=== PATIENT | female | born 1980 | race Caucasian/White ===

== ENCOUNTER 2016-05-23 22:38 | Emergency (ER) | payer OTHER ==
[2016-05-23] MEDS ORDERED: ONDANSETRON ODT 4 MG TABLET TL STA (22:49)
[2016-05-23] MEDS ORDERED: ONDANSETRON ODT 4 MG TABLET ONE (22:52)
[2016-05-23] MEDS ORDERED: DICYCLOMINE 10 MG CAPSULE PO STA (23:59)
[2016-05-24] MEDS ORDERED: ONDANSETRON ODT 4 MG Prepack 2 TL STA (00:01)
[2016-05-24] MEDS ORDERED: DICYCLOMINE 10 MG CAPSULE PO ONE (00:05)
[2016-05-24] MEDS ORDERED: ONDANSETRON ODT 4 MG Prepack 2 TL ONE (00:05)
== END 2016-05-24 00:18 | disposition home or self-care (01) ==
DX: A08.4 Viral intestinal infection, unspecified (principal)
CPT/HCPCS: 81003; 81025; 87275; 87276; 99283; A9270; Q0162

== ENCOUNTER → 2020-03-20 | Outpatient (CLI) | payer OTHER | LOC: LAB.R 08:00 | PROVIDERS: ATTEND Obstetrics & Gynecology | DX: Z36.85 Encounter for antenatal screening for Streptococcus B (principal) | CPT/HCPCS: 87797 ==

== ENCOUNTER 2020-04-16 08:53 | Outpatient (CLI) | payer OTHER ==
[2020-04-16 10:02] LABS: BASOPHILS % (AUTO) 0.4 %; EOSINOPHILS # (AUTO) 0.1 10^3/uL (0.0-0.7); EOSINOPHILS % (AUTO) 1.4 %; HGB - HEMOGLOBIN 12.2 g/dL (12.0-16.0); LYMPHOCYTES # (AUTO) 1.8 10^3/uL (1.5-3.5); LYMPHOCYTES % (AUTO) 22.2 %; MEAN CORPUSCULAR HEMOGLOBIN 30.9 pg (27.0-31.0); MEAN CORPUSCULAR HGB CONC 34.3 g/dL (32.0-36.0); MEAN CORPUSCULAR VOLUME 90.1 fL (81.0-99.0); MEAN PLATELET VOLUME 10.6 fL (7.9-10.8); MONOCYTES # (AUTO) 0.5 10^3/uL (0.0-1.0); MONOCYTES % (AUTO) 6.4 %; NEUTROPHILS # (AUTO) 5.5 10^3/uL (1.5-6.6); NEUTROPHILS % (AUTO) 68.8 %; PLT - PLATELET COUNT 166 10^3/uL (130-450); RED BLOOD COUNT 3.95 10^6/uL (4.20-5.40); RED CELL DISTRIBUTION WIDTH 13.2 % (12.0-15.0)
== END 2020-04-16 08:54 | disposition home or self-care (01) ==
LOC: LAB 08:53
PROVIDERS: ATTEND Obstetrics & Gynecology
DX: Z01.812 Encounter for preprocedural laboratory examination (principal); Z20.828 Contact with and (suspected) exposure to other viral communicable diseases; O34.211 Maternal care for low transverse scar from previous cesarean delivery
CPT/HCPCS: 36415; 85025; 86850; 86900; 86901; 86920

== ENCOUNTER 2020-04-19 06:01 | Inpatient (IN) | payer OTHER ==
[2020-04-19] MEDS ORDERED: ACETAMINOPHEN 1,000 MG/100 ML 100 ML IV ONE ×2 (06:20→07:52)
[2020-04-19] MEDS ORDERED: GABAPENTIN 400 MG CAPSULE PO SCH (06:20)
[2020-04-19] MEDS ORDERED: METHYLERGONOVINE 0.2 MG/ML VIAL IM ONE (06:23)
[2020-04-19] MEDS ORDERED: TRANEXAMIC ACID 1,000 MG in SODIUM CHLORIDE 0.9% 100ML 100 ML IV STA (06:23)
[2020-04-19] MEDS ORDERED: CARBOPROST TROMETHAMINE 250 MCG/ML AMP IM ONE ×2 (06:23→07:29)
[2020-04-19] MEDS ORDERED: OXYTOCIN/SODIUM CHLORIDE 500 ML IV PRN (06:23)
[2020-04-19] MEDS ORDERED: miSOPROStoL 200 MCG TABLET PR ONE (06:23)
[2020-04-19] MEDS ORDERED: LACTATED RINGERS 1,000 ML IV SCH ×2 (07:00→11:00)
[2020-04-19] MEDS ORDERED: BUPIVACAINE 0.25%-EPI 1:200000 PF 30 ML VIAL ONE (07:01)
[2020-04-19] MEDS ORDERED: CITRIC ACID/SODIUM CITRATE 15 ML UDC PO ONE (07:07)
--- NOTE | 2020-04-19 07:07 | ANESTHESIA ---
Pre-Anesthesia VS, & Labs - Diagnosis previous c/s - Procedure repeat c/s Vital Signs: Temp Pulse Resp BP Pulse Ox 36.7 C 81 18 123/65 98 04/19/20 06:35 04/19/20 06:35 04/19/20 06:35 04/19/20 06:35 04/19/20 06:35 Height: 5 ft 6 in Weight (kg): 93.44 kg Body Mass Index: 33.2 BMI Classification: Obese - NPO >8 hours Last Fluid Intake: am bicitra - Is Patient ?: Yes - Lab Results Lab results reviewed: Yes Home Medications and Allergies Active Medications Gabapentin (Gabapentin 400 Mg Capsule) 800 mg PO QPM RIKY Cefazolin Sodium 2 gm/ Sodium (Chloride) 100 mls @ 200 mls/hr IV Q8H RIKY Lactated Ringer's (Lr) 1,000 mls @ 125 mls/hr IV .Q8H RIKY Oxytocin/Sodium Chloride (Pitocin/Sodium Chloride) 500 mls @ 999 mls/hr IV PRN PRN; Protocol PRN Reason: POST- HEMORR PREVENTION Misoprostol (Misoprostol 200 Mcg Tablet) 800 mcg RI ONCE ONE Stop: 04/19/20 06:24 Levothyroxine [Synthroid] 125 mcg PO QDAC 05/23/16 Pnv No.95/Ferrous Fum/Folic AC [ Tablet] 1 each PO 05/23/16 Allergies/Adverse Reactions: Allergies Allergy/AdvReac Type Severity Reaction Status Date / Time No Known Drug Allergies Allergy Verified 05/23/16 22:42 Anes History & Medical History - Anesthetic History Anesthesia Complications: reports: Post-Operative Nausea/Vomiting Family history of Anesthesia Complications: Denies Family history of Malignant Hyperthermia: Denies - Medical History Cardiovascular: reports: None Pulmonary: reports: None Gastrointestinal: reports: None Urinary: reports: None Musculoskeletal: reports: None Endocrine/Autoimmune: reports: HyPOthyroidism, Other Skin: reports: None Smoking Status: Never smoker - Surgical History Gynecologic: section Exam General: Alert, Oriented x3, Cooperative Dental: WNL Mouth Openin Fingerbreadth Neck Mobility: Normal Mallampati classification: II Thyromental Distance: greater than 6 cm Respiratory: Lungs clear, Normal breath sounds, No respiratory distress Cardiovascular: Regular rate Neurological: Normal speech Cognitive Status: Within normal limits Plan Anesthesia Type: Spinal Consent for Procedure(s) Verified and Reviewed: Yes Code Status: Attempt Resuscitation ASA classification: 2-Mild systemic disease Is this case an emergency?: No
[2020-04-19] MEDS ORDERED: METHYLERGONOVINE 0.2 MG/ML VIAL ONE (07:30)
[2020-04-19 07:32] LABS: BASOPHILS % (AUTO) 0.5 %; EOSINOPHILS # (AUTO) 0.1 10^3/uL (0.0-0.7); EOSINOPHILS % (AUTO) 1.2 %; HGB - HEMOGLOBIN 11.8 g/dL (12.0-16.0); LYMPHOCYTES # (AUTO) 1.6 10^3/uL (1.5-3.5); LYMPHOCYTES % (AUTO) 20.3 %; MEAN CORPUSCULAR HGB CONC 33.8 g/dL (32.0-36.0); MEAN CORPUSCULAR VOLUME 88.8 fL (81.0-99.0); MEAN PLATELET VOLUME 10.7 fL (7.9-10.8); MONOCYTES # (AUTO) 0.5 10^3/uL (0.0-1.0); MONOCYTES % (AUTO) 5.8 %; NEUTROPHILS # (AUTO) 5.5 10^3/uL (1.5-6.6); NEUTROPHILS % (AUTO) 71.2 %; PLT - PLATELET COUNT 172 10^3/uL (130-450); RED BLOOD COUNT 3.93 10^6/uL (4.20-5.40); RED CELL DISTRIBUTION WIDTH 13.1 % (12.0-15.0); WHITE BLOOD COUNT 7.8 x10^3/uL (4.8-10.8)
--- NOTE | 2020-04-19 07:46 | HISTORY & PHYSICAL EXAMINATION ---
Admit History - Smoking Status: Never smoker - Other Maternal History Other Maternal History: The patient is a 39-year-old G3, P2 at 39 weeks 1 days estimated gestational age, presents for rLTCS The patient has been receiving her care from [facility]. She reports that she has not been seen since her 28 week visit. At that time she had oral glucose tolerance test with results of 119. TDAP complete The patient has history of two prior C-sections, the initial was for breech and the second was an elective repeat, last delivery was about 20 months ago. The patient reports that her last Pap smear was in October 2019. She has not had any abnormal Pap smears in 8 to 9 years. She has had abnormal Pap in the past that she followed the dysplasia resolved. She has never undergone a conization procedure. She denies any history of sexually transmitted infections and denies HSV.. She does not desire sterilization. Other than history of prior has been unremarkable. Allergies: No Known Allergies Medications: CLEAR FIBER POWDER ORAL POWDER (CORN DEXTRIN) ; Route: ORAL TUMS 500 MG ORAL TABLET CHEWABLE (CALCIUM CARBONATE ANTACID) ; Route: ORAL PREVIDENT 5000 BOOSTER PLUS PASTE (SODIUM FLUORIDE PSTE) PRE- FORMULA ORAL TABLET ( [id number]) Take one tablet by mouth once a day; Route: ORAL SYNTHROID 125 MCG ORAL TABLET (LEVOTHYROXINE SODIUM) ; Route: ORAL Problems: Preoperative examination (ICD-V72.84) (QFR61-K64.818) Exposure to COVID-19 coronavirus (ICD-V01.79) (TZY16-V01.828) Supervision of normal multigravida , unspecified trimester (ICD-V22.1) (NRW13-W06.80) Vaccine against disease (ICD-V05.9) (WSW01-T73) screening for streptococcus B (ICD-V28.6) (AZN76-O16.85) Abnormal Pap Smear (ICD-795.00) (EHD50-J47.619) Abnormal cervical Pap ASCUS (atypical squamous cells undetermined significance) (ICD-795.01) (QVL12-G74.610) Advanced maternal age (ICD-V26.33) (UUR49-E80.5) Uterine scar from previous surgery affecting (ICD-654.90) (ICD10- O34.29) Hypothyroidism (ICD-244.9) (AQZ86-D23.9) Endocrine, nutritional and metabolic diseases complicating , unspecified trimester (ICD-648.93) (JKY92-J25.280) Risk Factors: Smoked Tobacco Use: Never smoker Passive Smoke Exposure: no HIV High Risk Behavior: no Exercise: yes Seatbelt Use: 100 % Sun Exposure: occasionally Alcohol Use: no Drug Use: no Vital Signs: Patient Profile: 39 Years Old Female Height: 66 inches Weight: 206 pounds BMI: 33.37 BP sittin / 71 Cuff size: regular Vitals Entered By: KADE Hughes (April 10, 2020 9:29 AM) Meds Reviewed: Done Allergies Reviewed: Done No known allergies: T Past Medical History: None. Abnormal Pap Smear Headache/Migraine back pain Past Surgical History: x2/wisdom tooth extraction. (2015) (2018) [place] Teeth (2001) (2004) (2014) Bone scan bilateral feet (2014) Flowsheet View for Follow-up Visit Estimated weeks of gestation: 37 6/7 Weight: 206 Blood pressure: 105 / 71 Fundal height: 37 FHR: 144 Vaginal bleeding: no Vaginal discharge: no activity: yes Labor symptoms: no position: vertex Next visit: 1 wk Comment: Reviewed RBA for rLTCS and consents were obtained Declines BTL Reviewed COVID precautions Has help with after surgery Uses [facility] for postop meds [employer] Review of Systems ROS Comments: As per HPI, otherwise remaining systems are negative. Physical Constitutional: GEN: NAD HEAD: NCAT EYES: No scleral icterus or conjunctival injection NECK: No cervical LAD or TM CV: RRR RESP: CTAB, normal effort ABD: S&NT/ND PSYCH: appropriate affect NEURO: alert and oriented, normal gait and coordination EXT: WWP Impression & Recommendations: Problem # 1: Supervision of normal multigravida , unspecified trimester (ICD-V22.1) (RBZ99-U21.80) DATING: LMP 08/16/2019 gives VALE 04/25/2020 US on 10/26/2019 at 14w6d gives VALE 04/18/2020; cwd A pos/Rub imm QUAD wnl FAS 29%ile , posterior, wnl; gender not known per pt request HCT 36.6 on 01/28/20 Glucola 119 TDAP complete Influenza complete HSV: denies GBS: neg MOD: rLTCS scheduled for 04/18/2020 Declines BTL Vertex by bedside us RTC in one week Last pap 09/07/18, wnl FU in 1 week post op Orders: [id number] - SUBSEQUENT VISIT ([id number]) Reviewed risks/benefits/alternatives to Risks include, but are not limited to, bleeding, infection, damage to neatby tissue and organs. On average, EBL of up to 1 liter is considered within normal limits for CS. Risks of blood transfusion include infection Risk of HIV 1/2million nationwide Risk of Hepatitis 1/1 million Risks of transfusion reaction Infection risk moderate given clean/contaminated nature of procedure and IV antibiotics will be given. Damage to nearby tissue and organs including bladder, bowel, ureters, blood vessels, nerves, and fetus Damage may be noted intra-op and may be delayed until after the procedure is complete Reviewed management of complications and efforts to avoid such outcomes but reviewed that they may occur despite our best efforts Confirmed that sterlization is NOT desired Written informed consent obtained. Meds/Allgy - Home Medications Home Medications: Ambulatory Orders Medication Instructions Recorded Confirmed Levothyroxine [Synthroid] 125 mcg PO QDAC 05/23/16 05/23/16 Pnv No.95/Ferrous Fum/Folic AC 1 each PO 05/23/16 05/23/16 [ Tablet] Dicyclomine [Bentyl] 10 mg PO TID #15 capsule 05/24/16 Ondansetron Odt [Zofran] 4 mg TL Q6H PRN #14 tablet 05/24/16 - Allergies Allergies/Adverse Reactions: Allergies Allergy/AdvReac Type Severity Reaction Status Date / Time No Known Drug Allergies Allergy Verified 05/23/16 22:42 Physical - Abdominal Exam Vital Signs: Temp Pulse Resp BP Pulse Ox 98.1 F 81 18 123/65 98 04/19/20 06:35 04/19/20 06:35 04/19/20 06:35 04/19/20 06:35 04/19/20 06:35
[2020-04-19] MEDS ORDERED: HYDROmorphone 1 MG/ML CARPUJECT IVP ONE (07:52)
[2020-04-19] MEDS ORDERED: KETOROLAC 30 MG/ML VIAL IVP ONE (07:52)
[2020-04-19] MEDS ORDERED: OXYTOCIN IV ONE (07:52)
[2020-04-19] MEDS ORDERED: DEXAMETHASONE 4 MG/ML VIAL IVP ONE (07:52)
[2020-04-19] MEDS ORDERED: SODIUM CHLORIDE 0.9% IV ONE (07:52)
[2020-04-19] MEDS ORDERED: TRANEXAMIC ACID 1,000 MG/10 ML VIAL IV ONE (07:52)
[2020-04-19] MEDS ORDERED: fentaNYL 100 MCG/2 ML VIAL IVP ONE (07:52)
[2020-04-19] MEDS ORDERED: ONDANSETRON 4 MG/2 ML VIAL IVP ONE (07:52)
[2020-04-19] MEDS ORDERED: ePHEDrine 50 MG/ML VIAL IVP ONE (07:52)
[2020-04-19] MEDS ORDERED: BUPIVACAINE 0.25%-EPI 1:200000 PF 30 ML VIAL SUBQ ONE ×2 (08:12→09:46)
[2020-04-19] MEDS ORDERED: ONDANSETRON 4 MG/2 ML VIAL ONE (08:52)
[2020-04-19] MEDS ORDERED: fentaNYL 100 MCG/2 ML VIAL ONE (08:53)
[2020-04-19] MEDS: ONDANSETRON 4 MG/2 ML VIAL IVP PRN ×2 (10:00→16:31)
[2020-04-19] MEDS ORDERED: ONDANSETRON ODT 4 MG TABLET TL PRN (10:13)
[2020-04-19] MEDS ORDERED: oxyCODONE 5 MG TABLET PO PRN (10:13)
[2020-04-19] MEDS ORDERED: LACTATED RINGERS 1,000 ML IV ONE ×2 (10:13→10:44)
--- NOTE | 2020-04-19 10:23 | OPERATIVE REPORT ---
Operative Report - General Admit Date: 04/19/20 Procedure Date: 04/19/20 Planned Procedure: repeat low transverse Pre-Op Diagnosis: IUP at 39+1, Hx of prior x2 Procedure Performed: Repeat low transverse Post Op Diagnosis: same and delivery of term gestation - Procedure Note Primary Surgeon: Paulette Hedrick MD Secondary Surgeon: TAWANNA Longoria CNM Anesthesia Provider: Joselin Wilson CRNA Anesthesia Technique: Spinal Pathology: Placenta for routine discard IV Fluids (mL): 1,400 (see anesthesia record) Estimated Blood Loss (mL): 450 Urine Output (mL): 400 Indications: The patient is a 39-year-old G3, P2 at 39 weeks 1 days estimated gestational age, presents for rLTCS The patient has history of two prior C-sections, the initial was for breech and the second was an elective repeat, last delivery was about 20 months ago. Here for repeat . Declines sterilization. Findings: Normal appearing uterus, tubes, and ovaries. Vigrous male infant delivered from vertex pressentation. Weight and Apgars pending. Complications: None - Other Other Information/Narrative: Risks benefits and alternatives of the procedure were discussed. Written informed consent was obtained. Patient was taken to the operating room where spinal anesthesia was placed and found to be adequate. She was prepped and draped in the usual sterile fashion in the dorsal supine position with a leftward tilt. English catheter was in place. SCDs were in place and activated. Cefazolin 2 g IV was given as a preoperative antibiotic. Preoperative timeout was performed. A Pfannenstiel incision was made in the skin with a scalpel and carried through the underlying layer of fascia in a combination of sharp and blunt dissection. The fascia was incised in the midline, and the incision was extended laterally with the Mederos scissors. The superior aspect of the fascial incision was grasped with the Sherin clamps, elevated, and the underlying rectus muscles were dissected off bluntly and sharply using the Mederos scissors. Attention was then turned to the inferior aspect of the incision which in a similar fashion was grasped, tented up with Sherin clamps, and the underlying rectus muscles dissected off bluntly and sharply using Mederos scissors. The rectus muscles were then in the midline. The peritoneum was identified, tented up, and entered bluntly. The peritoneal incision was extended superiorly and inferiorly with good visualization of the bladder. The bladder that blade was then inserted. A bladder flap was not created. The lower uterine segment of the uterus was identified, and incised in a transverse fashion with a scalpel. The uterus was entered bluntly. The uterine incision was extended in a craniocaudal fashion by manual stretch. The bladder blade was removed. The was delivered from from vertex position. Baby was wrapped in a warm sterile towel. Delayed cord clamping was performed. After cessation of pulsations, the cord was clamped x2 and cut. The infant was handed off to the waiting pediatricians. The placenta was removed with manual expression. The uterus was not exteriorized and cleared of all clots clots and debris via manual swipe using Ray-Nic x2. The uterine incision was then repaired in a running locked fashion using 0 Vicryl suture. The incisoin was reinforced with a running imbricating layer again using 0-Vicryl suture. Excellent hemostasis was obtained. The gutters were cleared of all clots and debris. The pelvis was irrigated sloppy wet laparotomy spponges. The uterine defect was well visualized in normal anatomic position it was noted again to be hemostatic. The peritoneum was then reapproximated with 2-0 Vicryl in a running fashion. The rectus muscles were then reapproximated using interrupted [id number] sutures using 2-0 Chromic. Good hemostasis was noted. The fascia was then closed using 0 Vicryl in a running fashion starting from the left lateral edge to the midline. A second suture was used to close the fascia in a running fashion starting from the right lateral edge and meeting in the midline, agian using 0-Vicryl. The subcutaneous tissue was then irrigated and closed using 0 chromic in a running subcutaneous suture. Skin was closed in a running subcuticular suture using 4-0 Monocryl. A total of 20 cc of 1% lidocaine with epinephrine was injected into the suture line. Steri-Strips were applied to reinforce the incision and dressing was applied. Procedure was well-tolerated and without complication. Sponge lap and needle counts were correct x2. Patient was taken to recovery room in stable condition. TAWANNA Wayne CNM, assisted with retraction, delivery of the infant, and suturing.
[2020-04-19] MEDS: PROMETHAZINE 25 MG/1 ML VIAL IV SCH ×2 (10:28→11:40)
[2020-04-19] MEDS: ceFAZolin 2 GM in SODIUM CHLORIDE 0.9% MINIBAG 100 ML IV SCH ×2 (11:25→17:16)
[2020-04-19] MEDS: ACETAMINOPHEN 500 MG TABLET PO SCH ×2 (11:40→16:31)
[2020-04-19] MEDS: KETOROLAC 30 MG/ML VIAL IVP SCH ×2 (17:15→23:26)
[2020-04-19] MEDS: SODIUM CHLORIDE FLUSH 0.9% 10 ML SYRINGE IVP PRN ×2 (17:15→23:27)
[2020-04-19] MEDS: SODIUM CHLORIDE FLUSH 0.9% 10 ML SYRINGE IVP SCH ×2 (17:15→23:27)
--- NOTE | 2020-04-19 17:40 | ANESTHESIA POST OP EVALUATION ---
Anesthesia Post Eval - Post Anesthesia Eval Vitals: Last Vital Signs Temp 36.4 C L 04/19/20 16:30 Pulse 73 04/19/20 16:30 Resp 17 04/19/20 16:30 BP 115/59 L 04/19/20 16:30 Pulse Ox 97 04/19/20 16:30 CV Function Including HR & BP: positive: Stable Pain Control: positive: Satisfactory Nausea & Vomiting: positive: Negative Mental Status: positive: Baseline Respiratory Status: Airway Patent Hydration Status: Satisfactory Anesthesia Complications: positive: None
[2020-04-19] MEDS: DOCUSATE SODIUM 100 MG CAPSULE PO SCH (23:26)
[2020-04-20] MEDS: ACETAMINOPHEN 500 MG TABLET PO SCH ×3 (00:35→17:11)
[2020-04-20] MEDS: SODIUM CHLORIDE FLUSH 0.9% 10 ML SYRINGE IVP PRN (05:10)
[2020-04-20] MEDS: KETOROLAC 30 MG/ML VIAL IVP SCH (05:10)
[2020-04-20 06:02] LABS: BASOPHILS % (AUTO) 0.3 %; EOSINOPHILS # (AUTO) 0.1 10^3/uL (0.0-0.7); LYMPHOCYTES # (AUTO) 2.4 10^3/uL (1.5-3.5); LYMPHOCYTES % (AUTO) 24.2 %; MEAN CORPUSCULAR HEMOGLOBIN 30.4 pg (27.0-31.0); MEAN CORPUSCULAR HGB CONC 32.6 g/dL (32.0-36.0); MEAN CORPUSCULAR VOLUME 93.2 fL (81.0-99.0); MEAN PLATELET VOLUME 10.6 fL (7.9-10.8); MONOCYTES # (AUTO) 0.7 10^3/uL (0.0-1.0); MONOCYTES % (AUTO) 7.2 %; NEUTROPHILS # (AUTO) 6.6 10^3/uL (1.5-6.6); NEUTROPHILS % (AUTO) 66.7 %; PLT - PLATELET COUNT 188 10^3/uL (130-450); RED BLOOD COUNT 3.95 10^6/uL (4.20-5.40); RED CELL DISTRIBUTION WIDTH 13.2 % (12.0-15.0); WHITE BLOOD COUNT 9.9 x10^3/uL (4.8-10.8)
[2020-04-20] MEDS ORDERED: LEVOTHYROXINE 125 MCG TABLET PO SCH (07:00)
[2020-04-20] MEDS ORDERED: IBUPROFEN 600 MG TABLET PO SCH (11:00)
[2020-04-20] MEDS: DOCUSATE SODIUM 100 MG CAPSULE PO SCH ×2 (11:30→21:11)
--- NOTE | 2020-04-20 12:36 | PROVIDER PROGRESS NOTE ---
Subjective - Prog Note Date Prog Note Date: 04/20/20 Prog Note Time: 09:00 - Subjective Subjective: Patient is up and ambulating, tolerating po, and voiding. Pain is well managed with pain medications. BF going well. Objective - Vital Signs/Intake & Output Reviewed Vital Signs: Yes Vital Signs: Vital Signs x48h Temp Pulse Resp BP BP Pulse Ox 04/20/20 12:08 97.5 F L 65 18 99/60 97 04/20/20 08:00 97.5 F L 67 17 106/55 L 98 04/20/20 05:13 97.9 F 62 16 104/52 L 98 Intake & Output: Intake & Output 04/17/20 04/18/20 04/19/20 04/20/20 23:59 23:59 23:59 23:59 Intake Total 1760 500 Output Total 2105 1500 Balance -345 -1000 - Objective General Appearance: positive: No acute distress Neck: positive: Nml inspection Respiratory: positive: No respiratory distress Cardiovascular: positive: Other (RR) Peripheral Pulses: 2+ Radial (R), 2+ Dorsalis pedis (R), 2+ Dorsalis pedis (L) Abdomen: positive: Non-tender, Other (S&NT/ND. Incision with dressing in place CDI) Skin: positive: Color nml Extremities: positive: Non-tender, No pedal edema Neurologic/Psychiatric: positive: Oriented x3 - Lab Results Fish Bones: 04/20/20 05:31 Other Labs: Lab Results x24hrs 04/20/20 Range/Units 05:31 WBC 9.9 (4.8-10.8) x10^3/uL RBC 3.95 L (4.20-5.40) 10^6/uL Hgb 12.0 (12.0-16.0) g/dL Hct 36.8 L (37.0-47.0) % MCV 93.2 (81.0-99.0) fL MCH 30.4 (27.0-31.0) pg MCHC 32.6 (32.0-36.0) g/dL RDW 13.2 (12.0-15.0) % Plt Count 188 (130-450) 10^3/uL MPV 10.6 (7.9-10.8) fL Neut # (Auto) 6.6 (1.5-6.6) 10^3/uL Lymph # (Auto) 2.4 (1.5-3.5) 10^3/uL [place] # (Auto) 0.7 (0.0-1.0) 10^3/uL Eos # (Auto) 0.1 (0.0-0.7) 10^3/uL Baso # (Auto) 0.0 (0.0-0.1) 10^3/uL Absolute Nucleated RBC 0.00 x10^3/uL Nucleated RBC % 0.0 /100WBC Assessment/Plan - Problem List (1) delivery delivered Impression: POD#1: Patient is doing well Routine post op care Anticipate DC home in am
[2020-04-20] MEDS: IBUPROFEN 600 MG TABLET PO SCH ×2 (14:51→21:12)
[2020-04-21] MEDS: IBUPROFEN 600 MG TABLET PO SCH (04:00)
[2020-04-21] MEDS: ACETAMINOPHEN 500 MG TABLET PO SCH ×2 (04:00→12:39)
[2020-04-21 08:42] VITALS: BP 110/69
--- NOTE | 2020-04-21 09:24 | Discharge Plan ---
Discharge Plan Problem Reviewed?: Yes Disposition: Home, Self Care Prescriptions: Docusate Sodium 100Mg Capsule [Colace 100Mg Capsule] 100 - 200 mg PO BID PRN #60 capsule PRN Reason: Constipation Ibuprofen [Motrin] 600 mg PO Q6H PRN #90 tab PRN Reason: Pain oxyCODONE [Roxicodone] 5 mg PO Q4H PRN #24 tablet PRN Reason: Pain Acetaminophen [Tylenol] 650 mg PO Q6H PRN #90 tablet PRN Reason: PRN PAIN &/OR FEVER Diet: Regular Activity Restrictions: Additional Comments Shower Restrictions: Yes (OK to shower. No tub baths or hot tubs for 4 weeks) Additional Instructions or Follow Up instructions: Nothing in the vagina for 6 weeks: No intercourse, tampons, douching Call for: -Fever greater than 100.5 -Pain that does not improve with pain medication -Heavy bleeding in which you are soaking a pad an hour for 2 hours in a row -Incision becomes hot, hard, red, starts to open, or leaks foul smelling fluid No lifting more than 10# for 4 [address] while on narcotics Ok to shower. Let water run over the incision. Do not soap, scrub, or apply lotion. Pat dry with a clean towel or rosi a psychology department chair. The surgical stickers will start to peel off and you can remove them when they do. Otherwise, the provider will remove them at your one week follow-up appointment. OK to use an unscented sanitary napkin or clean washcloth to keep the incision dry if the belly folds over the incision. No Smoking: If you smoke, Please STOP! Call for help. Follow-up with: Sinai Hedrick MD [Provider Admit Priv/Credential] -
--- NOTE | 2020-04-21 10:16 | PROVIDER PROGRESS NOTE ---
Subjective - Prog Note Date Prog Note Date: 04/21/20 Prog Note Time: 10:13 - Subjective Subjective: Patient is doing well. Has been up and ambulating. Tolerating po. Pain well managed. Voiding. BF going well. Objective - Vital Signs/Intake & Output Reviewed Vital Signs: Yes Vital Signs: Vital Signs x48h Temp Pulse Pulse Resp BP BP Pulse Ox 04/21/20 08:39 97.9 F 65 18 110/69 97 04/21/20 04:13 97.5 F L 55 L 16 111/60 97 Intake & Output: Intake & Output 04/18/20 04/19/20 04/20/20 04/21/20 23:59 23:59 23:59 23:59 Intake Total 1760 500 Output Total 2105 1500 Balance -345 -1000 - Objective General Appearance: positive: No acute distress Neck: positive: Nml inspection Respiratory: positive: No respiratory distress, Breath sounds nml Cardiovascular: positive: Regular rate & rhythm Abdomen: positive: Non-tender, Other (Dressing CDI. Removed and CDI) Back: positive: Nml inspection Skin: positive: Color nml, No rash, Warm Extremities: positive: Non-tender, No pedal edema Neurologic/Psychiatric: positive: Oriented x3 - Lab Results Fish Bones: 04/20/20 05:31 Assessment/Plan - Problem List (1) delivery delivered Impression: POD#2: Doing well. Meeting goals for discharge Routine discharge instructions given FU in 1 weeks
--- NOTE | 2020-04-21 10:19 | DISCHARGE SUMMARY ---
"Discharge Summary Admit Date: 04/19/20 Discharge Date: 04/21/20 Discharging Provider: Ryley Code Status: Attempt Resuscitation Condition at Discharge: Good Discharge Disposition: 01 Home, Self Care - DIAGNOSES Admission Diagnoses: IUP at 39+1 wga Hx of prior x2 Discharge Diagnoses with Status of Each Condition: Same and delivery of term gestation - HPI History of Present Illness: The patient is a 39-year-old G3, P2 admitted at 39 weeks 1 days estimated gestational age, presents for rLTCS The patient has been receiving her care from . She reports that she has not been seen since her 28 week visit. At that time she had oral glucose tolerance test with results of 119. TDAP complete The patient has history of two prior C-sections, the initial was for breech and the second was an elective repeat, last delivery was about 20 months ago. The patient reports that her last Pap smear was in October 2019. She has not had any abnormal Pap smears in 8 to 9 years. She has had abnormal Pap in the past that she followed the dysplasia resolved. She has never undergone a conization procedure. She denies any history of sexually transmitted infections and denies HSV.. She does not desire sterilization. Other than history of prior has been unremarkable. - CONSULTS | PROCEDURES Procedures: Repeat low transverse . - HOSPITAL COURSE Hospital Course: The patient is a 39-year-old G3, P2 at 39 weeks 1 days estimated gestational age admitted for repeat LTCS. Procedure was well tolerated and without complication. She delivered a viable male infant from vertex presentation. Apgars were 8/9 and weight 3.675 kg. Postoperative/ course was unremarkable. Meeting goals for discharge by POD#2. Rh positive/Rubella immune. Routine discharge instructions given. - ALLERGIES Allergies/Adverse Reactions: Allergies Allergy/AdvReac Type Severity Reaction Status Date / Time No Known Drug Allergies Allergy Verified 05/23/16 22:42 - MEDICATIONS Home Medications: Ambulatory Orders Medication Instructions Recorded Confirmed Levothyroxine [Synthroid] 125 mcg PO QDAC 05/23/16 05/23/16 Pnv No.95/Ferrous Fum/Folic AC 1 each PO 05/23/16 05/23/16 [ Tablet] Dicyclomine [Bentyl] 10 mg PO TID #15 capsule 05/24/16 Ondansetron Odt [Zofran] 4 mg TL Q6H PRN #14 tablet 05/24/16 Acetaminophen [Tylenol] 650 mg PO Q6H PRN #90 tablet 04/19/20 Docusate Sodium 100Mg Capsule 100 - 200 mg PO BID PRN #60 capsule 04/19/20 [Colace 100Mg Capsule] Ibuprofen [Motrin] 600 mg PO Q6H PRN #90 tab 04/19/20 oxyCODONE [Roxicodone] 5 mg PO Q4H PRN #24 tablet 04/19/20 - LABS Result Diagrams: 04/20/20 05:31 - QUALITY (Female Hip Fx Only) Was patient sent home on osteoporosis medication?: No - FOLLOW UP Follow Up: [address] Hedrick - TIME SPENT Time Spent in Discharge (Minutes): 30"
[2020-04-21] MEDS: DOCUSATE SODIUM 100 MG CAPSULE PO SCH (12:39)
--- NOTE | 2020-04-21 13:33 | Labor Flowsheet ---
Labor Flowsheet Datetime Report Generated by CPN: 04/21/2020 13:32 Datetime: 04/19/2020 09:25 VITAL SIGNS NBP Sys/Karma/Mean (mmHg): 127 : 88 : 97 Pulse: 103 COMMUNICATION LaborFlag: Antepartum Datetime: 04/19/2020 07:44 SpO2 (%): 96 Datetime: 04/19/2020 06:28 Stage of : Antepartum
== END 2020-04-21 13:20 | disposition home or self-care (01) | DRG 788 ==
LOC: INTOOBSV 06:01 → UNDOADMOB 06:01 → FBP 06:01 → OBS 09:06 → OBSVTOIN 10:13 → INTOOBSV 10:13 → UNDODISIN 04-21 13:20
PROVIDERS: ADMIT Obstetrics & Gynecology; ATTEND Obstetrics & Gynecology
PROC: 10D00Z1 Extraction of Products of Conception, Low, Open Approach (ICD-10-PCS; principal; 2020-04-19 07:30)
DX: O34.211 Maternal care for low transverse scar from previous cesarean delivery (principal); Z37.0 Single live birth; O99.284 Endocrine, nutritional and metabolic diseases complicating childbirth; E03.9 Hypothyroidism, unspecified; Z3A.39 39 weeks gestation of pregnancy
CPT/HCPCS: 36415; 85025; A9270; J0131; J1170; J7120; 86850; 86900; 86901; 86920

== ENCOUNTER 2020-04-27 13:11 | Outpatient (CLI) | payer OTHER | END 2020-04-27 13:12 | disposition home or self-care (01) | LOC: WFO 13:11 | PROVIDERS: ATTEND Pediatrics | DX: Z53.9 Procedure and treatment not carried out, unspecified reason (principal) ==

== ENCOUNTER 2021-03-28 07:14 | Outpatient (CLI) | payer OTHER ==
--- NOTE | 2021-03-28 09:24 | MRI Report ---
PROCEDURE: Ankle LT W/O INDICATIONS: L FOOT AND ANKLE PAIN TECHNIQUE: Noncontrast Magnetic Resonance Imaging (MRI) of the ankle/hindfoot was performed utilizing the follow ing sequences: sagittal T1 spin echo, sagittal STIR or T2 weighted, axial PD fast spin echo, axial T2 fast spin echo with fat saturation, coronal T2 spin echo with fat saturation, and PD fast spin echo with fat saturation. COMPARISON: None. FINDINGS: Bones: No acute fracture. No suspicious osseous lesion. There is minimal marrow edema present within the lateral malleolus. Joint effusions: None. Talar dome: No osteochondral lesion. Coalitions: No hindfoot coalition identified. There is diffuse hindfoot and midfoot degenerative spurring and subchondral sclerosis Medial structures: Deltoid ligament: Intact. Spring ligament: Intact. Posterior tibialis: Minimal tenosynovitis was intact Flexor digitorum longus: Intact. Flexor hallucis longus: Intact. Posterior tibial neurovascular bundle: Normal appearance. Lateral structures: Anterior talofibular ligament: Intact. Calcaneofibular ligament: Intact. Posterior talofibular ligament: Intact. Anterior tibiofibular ligament: Intact. Posterior tibiofibular ligament: Intact. Peroneus longus: Intact. Peroneus brevis: Mild tendinopathy and interstitial tearing at the level of the lateral malleolar tip . Sinus tarsi: Normal appearance. Anterior structures: Dorsal talonavicular ligament: Intact. Tibialis anterior: Intact. Extensor hallucis longus: Intact. Extensor digitorum longus: Intact. Posterior and plantar structures: Achilles tendon: Intact. Plantar fascia: Intact. Muscles: No atrophy to suggest Smith's neuropathy. IMPRESSION: No bone marrow edema involving the lateral malleolus which could be related to mild contusion. Minimal posterior tibialis tenosynovitis Peroneus brevis tendinopathy and mild interstitial tearing as above. Reviewed by: Patrick Santamaria MD on 03/28/2021 9:22 AM PST Approved by: Patrick Santamaria MD on 03/28/2021 9:22 AM PST Station ID: [id number]
--- NOTE | 2021-03-28 09:30 | MRI Report ---
PROCEDURE: Foot LT W/O INDICATIONS: L FOOT AND ANKLE PAIN TECHNIQUE: Noncontrast coronal and sagittal T1 spin echo and STIR; axial T1 spin echo and T2 fast spin echo with fat saturation through the left foot. COMPARISON: None. FINDINGS: Image quality: Excellent. Bones: The visualized bone marrow demonstrates normal signal on all sequences. The overlying cortex appears intact. No fractures lines or intra-osseous lesions. Scattered subchondral sclerosis and s purring. Soft tissues: The scanned muscles demonstrate normal overall bulk and internal signal. Subcutaneous tissues appear normal as well. There is mild amount of fluid between the first and second, second an d third, and third and fourth metatarsal heads in keeping with intermetatarsal bursitis. No discrete soft tissue signal abnormality in the area of the skin fiducial placed on the dorsal forefoot at the level of the fifth metatarsal base. There is minimal marrow signal change in the fifth metatarsal bas e which is technically indeterminate and of doubtful clinical significance. Sequela of low-grade reso lving marrow contusion is in the differential. If there is history of trauma in this area. There is infiltration of the plantar subcutaneous fat at the level of the fifth metatarsal head. No soft tissue masses are present. IMPRESSION: Diffuse intermetatarsal fluid as detailed above suggesting low-grade intermetatarsal bur sitis. Nonspecific soft tissue swelling and signal changes at the lateral forefoot, at the fifth metatarsal head, plantar aspect. This could represent low-grade cellulitis versus developing adventitial bursiti s. Please correlate clinically to exam findings. Reviewed by: Patrick Santamaria MD on 03/28/2021 9:29 AM PST Approved by: Patrick Santamaria MD on 03/28/2021 9:29 AM PST Station ID: [id number]
== END 2021-03-28 07:15 | disposition home or self-care (01) ==
LOC: DI 07:14
PROVIDERS: ATTEND Podiatrist
DX: M65.872 Other synovitis and tenosynovitis, left ankle and foot (principal); R22.42 Localized swelling, mass and lump, left lower limb

== ENCOUNTER 2021-05-22 08:15 | Outpatient (CLI) | payer OTHER ==
--- NOTE | 2021-05-22 10:17 | MRI Report ---
PROCEDURE: Foot RT W/O INDICATIONS: PAINFUL RIGHT FOOT AND ANKLE TECHNIQUE: Noncontrast coronal and sagittal T1 spin echo and STIR; axial T1 spin echo and T2 fast spin echo with fat saturation through the right foot. COMPARISON: None. FINDINGS: Image quality: Excellent. Bones: Surface skin marker is placed over dorsal and lateral aspect of the midfoot at the level of f ifth metatarsal base/proximal shaft. A second surface skin marker is also seen placed over plantar an d medial aspect of mid foot at the level of first metatarsal base/proximal shaft. There is no marrow edema. No metatarsal stress fractures. Mild osteoarthritic changes are seen at first MTP joint and ar ticulation between first metatarsal head and sesamoids. No suspicious intraosseous lesion. No other a hilda of abnormal marrow signal. Soft tissues: The scanned muscles demonstrate normal overall bulk and internal signal. Subcutaneous tissues appear normal as well. No soft tissue masses are present. IMPRESSION: 1. 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 No metatarsal stress fracture. No other area of abnormal marrow signal. No suspicious intraosseous lesion. 2. Visualized midfoot and forefoot tendons and ligaments are grossly intact. No gross soft tissue abn ormality is seen. No abnormality is seen at patient's reported areas of pain. Reviewed by: Edgar Cervantes MD on 05/22/2021 10:16 AM PST Approved by: Edgar Cervantes MD on 05/22/2021 10:16 AM PST Station ID: [id number]
--- NOTE | 2021-05-22 12:56 | MRI Report ---
PROCEDURE: Ankle RT W/O INDICATIONS: PAINFUL RIGHT FOOT AND ANKLE TECHNIQUE: Noncontrast sagittal T1 spin echo and T2 fast spin echo with fat saturation, axial proton density fas t spin echo and T2 fast spin echo with fat saturation, coronal T1 spin echo and T2 fast spin echo wit h fat saturation through the ankle/hindfoot. COMPARISON: None. FINDINGS: Image quality: Excellent. Bones and joints: Questionable marrow edema involving the cuneiforms, cuboid, and adjacent metatarsal bases not appreciated on MRI of the foot from the same day likely represent artifacts. No discrete f racture line. No suspicious intraosseous lesion. No hindfoot coalitions. No osteochondral injuries o f the talar dome. No pathologic joint effusions. Medial structures: The posterior tibialis is mildly thickened with surrounding soft tissue edema at the level of distal talus/talonavicular joint. The flexor digitorum longus, and flexor hallucis longu s tendons are intact. The posterior tibial neurovascular bundle appears normal within the tarsal leia brian, without extrinsic mass effect. The deep layer (anterior and posterior tibiotalar ligaments) and superficial layer (tibionavicular, tibiospring, and tibiocalcaneal ligaments) of the deltoid ligamen t appear normal. The spring ligament components (superomedial calcaneonavicular, medioplantar obliqu e calcaneonavicular, and inferoplantar longitudinal ligaments) are intact. Lateral structures: The anterior talofibular, and calcaneofibular ligaments are intact. Thickened po sterior talofibular ligament with intrasubstance T2 hyperintense signal is seen suggestive of low-gra de sprain/intrasubstance partial thickness tear. More superiorly, the anterior and posterior tibiofib ular ligaments appear normal, as is the intermalleolar ligament. The tibiofibular syndesmosis is nor mal in width at 2 mm or less. The peroneus longus and brevis tendons demonstrate normal location and morphology. Adjacent bony peroneal tubercle and retrotrochlear prominence are normal in size. The sinus tarsi demonstrates normal fatty signal, without edema, fibrosis, or cyst formation. Visualized sinus tarsi components (cervical ligament, interosseous talocalcaneal ligament, roots of the inferio r extensor retinaculum) appear normal. Anterior structures: The tibialis anterior, extensor hallucis longus, and extensor digitorum longus tendons appear intact. Posterior and plantar structures: Achilles tendon is intact. Medial and lateral bands of the planta r fascia are of normal thickness. No abductor digiti quinti muscle atrophy to suggest Smith neuropa thy. IMPRESSION: 1. Suggestion of mild tendinosis involving posterior tibialis tendon at the level of distal talus/lela onavicular joint. Rest of the ankle tendons are intact. 2. Suggestion of sprain/low-grade intrasubstance partial thickness tear involving posterior talofibul ar ligament. 3. No definite marrow edema. No osteochondral injury of talar dome. No fracture or dislocation. Reviewed by: Edgar Cervantes MD on 05/22/2021 12:11 PM PST Approved by: Edgar Cervantes MD on 05/22/2021 12:11 PM PST Station ID: [id number]
== END 2021-05-22 08:16 | disposition home or self-care (01) ==
LOC: DI 08:15
PROVIDERS: ATTEND Podiatrist
DX: M67.971 Unspecified disorder of synovium and tendon, right ankle and foot (principal); M19.071 Primary osteoarthritis, right ankle and foot

== ENCOUNTER 2021-08-29 13:10 | Outpatient (CLI) | payer OTHER ==
[2021-08-29 14:16] VITALS: BP 135/89
--- NOTE | 2021-08-29 14:16 | SLEEP CARE CONSULTATION ---
Information from patient questionnaire entered by Piedad Baez MA. I have reviewed and concur with the information entered by Piedad Baez MA. This document represents the service I personally performed and the decisions made by me, Pooja Bill ARNP. History of Present Illness Service Date and Time: 08/29/2021 1310 Reason for Visit: New patient (ONSET 05/2003, NO PRIORS,) Chief Complaint: reports: Unrefreshed sleep, Snoring, Fatigue, Other (jaw clench ine and grinding while sleeping) Date of Onset: 2013 Usual bedtime: 900-930 PM Time it takes to fall asleep: 15-30 MINUTES Snores at night: Yes Observed to quit breathing while asleep: No Sleeps alone due to snoring: No Number of times waking at night: 3 Reasons for waking at night: reports: Snoring, Other (unknown reasons). denies: Choking, Gasping for air Toss, Turn, or Twitch while sleeping: Yes Recalls having dreams: No Usually gets out of bed at: 0600 Feels refreshed in the morning: No Morning headache: Yes (6 days week and will last all day; "never go away") Sleepy or fatigued during the day: Yes (will get sleepy when being still) Ever fallen asleep while driving: Yes (drowsy driving, no accidents) Takes day naps: No Dreams during day naps: No Prior sleep studies: No Additional HPI information: I had the pleasure of seeing SORIN REDMOND today regarding the possibility of her having a sleep disorder. Her current complaints are snoring and fatigue. Patient states she does some jaw clenching and grinding while sleeping. She was recommended by dentist to be evaluated for sleep apnea. She states she has been fatigued forever. She does not wake up feeling rested. She snores but her states it isn't too loud. She states the snoring will wake her up. Her has not observed any pauses in breathing. She has broken many oral devices made for her jaw clenching. She states if she goes without using her mouth guard then she can hardly open her mouth in the morning. She will wake up with a headache about 6 days a week and they never go away. They think her headaches are related to her jaw clenching. She has issues with TMJ as well. - Parasomnia Symptoms Ever been unable to move upon waking from sleep: No Walks in sleep: Yes (used to as a kid) Talks in sleep: Yes Ever acted out dreams in sleep: No Ever felt weak in the knees when startled or emotional: Yes (has not fallen to ground) Bothered by creepy, crawly, restless sensations in legs: No Problems with memory or concentration: Yes (concentration mostly) Subjective Initial [place] Sleepiness Scale score: 9 (2021) Past Medical History Past Medical History: reports: Hypothyroidism, Other (bruxism) Social History The patient's occupation is a AM. Patient is and lives in [place]. Have you smoked in the past 12 months: No Alcohol use: Yes Alcohol amount and frequency: 3 times a month Caffeine use: Yes Caffeine amount and frequency: 1 coffee daily Family History Family history of sleep disordered breathing: Yes Family Hx Sleep Apnea: Mother: Snoring, Father: Snoring, Sleep apnea - Treated, Sibling: Snoring Allergies and Home Medications Known drug allergies: No Drug allergies reviewed: Yes Home medication list reviewed: Yes Allergy and home medication list: Allergies No Known Drug Allergies Allergy (Verified 05/23/16 22:42) Medications: Eye drops Synthroid 125 mcg daily vitamins Soluble fiber powder, daily Review of Systems Weight loss over past 5 years: 10 Gastrointestinal: reports: nausea, abdominal pain Neurological: reports: headaches Ear/Nose/Throat: reports: wisdom teeth removed. denies: tonsillectomy Endocrine: reports: thyroid disease, sluggishness, too hot or cold, excessive thirst Musculoskeletal: reports: joint pain, neck pain, back pain Immunologic: reports: sneezing, itching Physical Exam Vital signs obtained and entered by: Ozzy BAEZ CMA AASOPHIA Blood Pressure: 135/89 (PULSE 75, RESP 18, LEFT, ) Heart Rate: 73 O2 Saturation: 98 (PAPER) Height: 5 ft 6 in Weight: 177 lb (CLOTHES) Weight change since last visit: POST PREG DIETING Body Mass Index: 28.5 BMI Classification: Overweight Neck circumference: 12 (INCHES) Mouth and throat: narrow oropharynx Soft palate: long Hard palate: normal Uvula: normal Uvula visualization: 25% Mallampati Class III Tongue: normal in size Tonsils: small Chin and jaw: Micrognathia (mild) Neck: normal w/o lymphadenopathy or thyromegaly Heart: regular rate and rhythm Lungs: clear bilaterally Impression and Plan 1. Suspected Obstructive Sleep Apnea-Hypopnea Syndrome, as suggested by a history of loud and irregular snoring, morning headache, unrefreshed sleep, cognitive impairment, and excessive daytime sleepiness. Narrow oropharynx and obesity are common predisposing factors for obstructive sleep apnea-hypopnea syndrome. I recommend proceeding to polysomnography to confirm the diagnosis and to assess severity. If the patient has significant sleep disordered breathing, a manual CPAP titration study will also be performed to find the optimal treatment pressure. I informed the patient of what the sleep studies involve and after some discussion, obtained agreement to proceed. The pathophysiology of obstructive sleep apnea-hypopnea syndrome was discussed with the patient and health risks of cardiovascular and cerebrovascular disease if not treated. Risks of drowsy driving discussed in detail and patient advised to avoid long distance driving and to picker/puller at the first sign of drowsiness. Patient agreed to plan. * Schedule polysomnography +- manual CPAP titration study and return in 1-2 weeks after the study to discuss results. * Avoid long distance driving or driving when feeling sleepy. * Avoid alcohol, sedative and muscle relaxant around bedtime. * Attempt to lose weight. * Review instructions provided by trained office staff on how to prepare for the sleep study. * Return for follow-up after sleep study completed. Counseling Topics: Weight loss health impact Visit Type: In Office Time Spent with Patient (minutes): 30 Provider Statement: I spent 100% of the Face to Face Visit with the patient with greater than 50% spent counseling the patient and coordination of care.
== END 2021-08-29 13:11 | disposition home or self-care (01) ==
LOC: SC 13:10
PROVIDERS: ATTEND Nurse Practitioner Family
DX: R06.83 Snoring (principal); R51.9 Headache, unspecified; R41.9 Unspecified symptoms and signs involving cognitive functions and awareness; G47.10 Hypersomnia, unspecified
CPT/HCPCS: 99203; 99212

== ENCOUNTER 2021-09-12 08:47 | Outpatient (CLI) | payer OTHER | END 2021-09-12 08:48 | disposition home or self-care (01) | LOC: SC 08:47 | PROVIDERS: ATTEND Nurse Practitioner Family | DX: R06.83 Snoring (principal); G47.8 Other sleep disorders; R51.9 Headache, unspecified; R53.83 Other fatigue | CPT/HCPCS: 95806 ==

== ENCOUNTER 2021-10-05 13:25 | Outpatient (CLI) | payer OTHER ==
[2021-10-05 13:57] VITALS: BP 130/85
--- NOTE | 2021-10-05 13:57 | SLEEP CARE CONSULTATION ---
Information from patient questionnaire entered by Piedad Baez MA. I have reviewed and concur with the information entered by Piedad Baez MA. This document represents the service I personally performed and the decisions made by Fly ho Caren J, ARNP. History of Present Illness Service Date and Time: 10/05/2021 1325 Initial [place] Sleepiness Scale score: 9 (2021) Current [place] Sleepiness Scale score: 13 Additional HPI information: SORIN REDMOND returns for follow up and results of the recently performed home sleep study. The patient was informed of the following findings: No significant sleep disordered breathing with an average AHI of 1.8 and maryana oxygen saturation of 89%. I explained the pathophysiology behind obstructive sleep apnea. Patient does not have sleep apnea and was advised how weight gain could increase the risk of developing sleep apnea in the future. Patient has light snoring. Snoring can be reduced by weight loss. Weight loss is best achieved with diet consult. Patient instructed to contact PCP for referral. Snoring can also be treated with an oral appliance from a dentist. Advised to check insurance coverage. In addition, an ENT evaluation can be do to see if other treatment is indicated. Patient was cautioned about risks of drowsy driving until sleepiness symptoms resolve. Sleep Study - Results Type of Sleep Study: Home sleep study (F/U HOME STUDY, 09/12/21 [facility],) Prior sleep studies: No Polysomnography/Home Sleep Study results: Physician Impression: The quality of the study is good. The length of the study is adequate (> 240 minutes). Please also see the tabulated and graphic data. 1. No significant sleep disordered breathing, with an AHI of 1.8/hr and maryana SaO2 of 89%. During the study, the patient had 13 apneas (13 obstructive, 0 central, 0 mixed) and 3 hypopneas. The longest episode lasted 100.5 seconds. The patient slept adequately in supine position (supine AHI was 2.5 and non-supine, 1.25). Allergies and Home Medications Home medication list reviewed: Yes (no changes) Allergy and home medication list: Allergies No Known Drug Allergies Allergy (Verified 05/23/16 22:42) Review of Systems Review of systems same as previous: Yes (no changes) Physical Exam Vital signs obtained and entered by: Ozzy BAEZ CMA AASOPHIA Blood Pressure: 130/85 (RESP 18, PULSE 68, RIGHT) Heart Rate: 71 O2 Saturation: 99 (N95) Height: 5 ft 6 in Weight: 180 lb (CLOTHES) Body Mass Index: 29.0 BMI Classification: Overweight Impression and Plan Snoring but no significant sleep disordered breathing. Patient advised that often weight loss will reduce snoring as well as apnea risk. An oral appliance can also be used for snoring. This would require a dental consultation. Patient cautioned not to use other online appliances as can cause bite issues. A list of accredited dentists in [facility] and one local dentist who makes oral appliances is available in office. Patient is advised to check if insurance will cover. An ENT consult can also be helpful to determine if any other treatment is an option. Patient has a history of bruxism and jaw clenching. She wears an oral appliance to protect her teeth. * Attempt to lose weight * Return as needed for follow up. Counseling Topics: Weight loss health impact Visit Type: In Office Time Spent with Patient (minutes): 15 Provider Statement: I spent 100% of the Face to Face Visit with the patient with greater than 50% spent counseling the patient and coordination of care.
== END 2021-10-05 13:26 | disposition home or self-care (01) ==
LOC: SC 13:25
PROVIDERS: ATTEND Nurse Practitioner Family
DX: R06.83 Snoring (principal); G47.63 Sleep related bruxism
CPT/HCPCS: 99212

== ENCOUNTER 2021-11-05 09:58 | Outpatient (CLI) | payer OTHER ==
--- NOTE | 2021-11-05 16:43 | MRI Report ---
PROCEDURE: Cervical Spine W/O INDICATIONS: CERVICAL RADICULITIS TECHNIQUE: Noncontrast sagittal T1 spin echo and T2 fast spin echo, sagittal STIR, foraminal oblique sagittal T2 fast spin echo, and axial gradient echo or T2 fast spin echo through the cervical spine. COMPARISON: None. FINDINGS: Image quality: Excellent. Alignment and Curvature: Normal cervical spine vertebral body height and alignment. Bone Marrow: Normal bone marrow signal intensity. Spinal Cord: Visualized spinal cord has normal size and signal. No cerebellar tonsillar herniation. Regional Soft Tissues: Prevertebral and paraspinous soft tissues demonstrate normal signal. C2-C3: Normal in appearance. C3-C4: Normal in appearance. C4-C5: Normal in appearance. C5-C6: Normal in appearance. C6-C7: Normal in appearance. C7-T1: Normal in appearance. IMPRESSION: No spinal canal stenosis, neural foraminal stenosis, or evidence of focal nerve root impingement. No cord signal abnormality. Reviewed by: Ford Rosales MD on 11/05/2021 4:41 PM PDT Approved by: Ford Rosales MD on 11/05/2021 4:41 PM PDT Station ID: [id number]
== END 2021-11-05 09:59 | disposition home or self-care (01) ==
LOC: DI 09:58
PROVIDERS: ATTEND Student in an Organized Health Care Education/Training Program
DX: M99.01 Segmental and somatic dysfunction of cervical region (principal); M54.2 Cervicalgia; M54.6 Pain in thoracic spine

== ENCOUNTER 2021-12-15 16:14 | Emergency (ER) | payer OTHER ==
--- OUTSIDE RECORDS SUMMARY | 2021-12-15 16:32 | EXTERNAL MEDICAL SUMMARY RPT | Continuity of Care Document ---
:1980 Author Organization [facility] Address [address] [place] [address] Phone Allergies No information. Encounters No information. Functional Status No information. Immunizations No information. Medications No information. Problems No information. Procedures date description facility [id number] [facility] Results/Labs No information. Social History No information. Vital Signs No information.
[2021-12-15] MEDS ORDERED: HYDROmorphone 1 MG/ML CARPUJECT IM STA (16:46)
--- NOTE | 2021-12-15 16:46 | ED Physician Documentation ---
History of Present Illness - Stated complaint Stated Complaint: ABD PX - Chief complaint Chief Complaint: Abd Pain - Additonal information Additional information: 41-year-old female presents emergency department for evaluation of 2 days of l ower pelvic pain. She describes it as sharp and nonradiating. Very constant. Unrelieved by Tylenol. No fevers nausea or vomiting. She thought perhaps she could be constipated and took some fiber supplementation yesterday. However she denies that she is not having bowel movements. She does have a history of x3 as well as complications and infection after her most recent one in this summer 2019. She retains her ovaries and appendix. Review of Systems Constitutional: denies: Fever, Chills Eyes: reports: Reviewed and negative Cardiac: reports: Reviewed and negative Respiratory: reports: Reviewed and negative GI: reports: Abdominal Pain. 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 Medications Home Medications: Ambulatory Orders Medication Instructions Recorded Confirmed Levothyroxine [Synthroid] 125 mcg PO QDAC 05/23/16 05/23/16 Pnv No.95/Ferrous Fum/Folic AC 1 each PO 05/23/16 05/23/16 [ Tablet] Dicyclomine [Bentyl] 10 mg PO TID #15 capsule 05/24/16 Ondansetron Odt [Zofran] 4 mg TL Q6H PRN #14 tablet 05/24/16 Acetaminophen [Tylenol] 650 mg PO Q6H PRN #90 tablet 04/19/20 Docusate Sodium 100Mg Capsule 100 - 200 mg PO BID PRN #60 capsule 04/19/20 [Colace 100Mg Capsule] Ibuprofen [Motrin] 600 mg PO Q6H PRN #90 tab 04/19/20 oxyCODONE [Roxicodone] 5 mg PO Q4H PRN #24 tablet 04/19/20 Amox/Clav 875/125 [Augmentin] 1 each PO Q12H #20 tablet 12/15/21 oxyCODONE [Roxicodone] 5 mg PO TID PRN #20 tablet 12/15/21 - Allergies Allergies/Adverse Reactions: Allergies Allergy/AdvReac Type Severity Reaction Status Date / Time No Known Drug Allergies Allergy Verified 12/15/21 16:27 - Social History Does the pt smoke?: No Smoking Status: Never smoker - Immunizations Immunizations are current?: Yes PD ED PE NORMAL - General General: Alert and oriented X 3, No acute distress - Neck Neck: Supple, no meningeal sign, No adenopathy - Cardiac Cardiac: RRR, No murmur - Respiratory Respiratory: No respiratory distress, Clear bilaterally - Abdomen Abdomen: Normal bowel sounds, Soft. No: Non tender (Tender on the very lower p elvic region. No guarding or rebound. 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 Eye Opening: Spontaneous Motor: Obeys Commands Verbal: Oriented GCS Score: 15 Results - Vitals Vitals: Vital Signs - 24 hr 12/15/21 12/15/21 12/15/21 16:24 16:56 17:45 Temperature 36.4 C L Heart Rate 84 84 74 Respiratory 16 16 16 Rate Blood Pressure 123/77 124/79 121/78 O2 Saturation 99 99 100 Oxygen O2 Source Room air - Labs Labs: Laboratory Tests 12/15/21 12/15/21 12/15/21 16:32 16:43 16:43 WBC 12.5 H RBC 4.54 Hgb 13.7 Hct 39.7 MCV 87.4 MCH 30.2 MCHC 34.5 RDW 12.7 Plt Count 208 MPV 10.7 Neut # (Auto) 10.1 H Lymph # (Auto) 1.4 L [place] # (Auto) 0.7 Eos # (Auto) 0.2 Baso # (Auto) 0.1 Absolute Nucleated RBC 0.00 Nucleated RBC % 0.0 Sodium 129 L Potassium 3.6 Chloride 98 L Carbon Dioxide 23 Anion Gap 8.0 BUN 8 Creatinine 0.7 Estimated GFR (MDRD) 93 Glucose 105 H Calcium 9.0 Total Bilirubin 1.3 H AST 13 ALT 11 Alkaline Phosphatase 55 Total Protein 7.3 Albumin 4.4 Globulin 2.9 Albumin/Globulin Ratio 1.5 Lipase 26 Urine Color Urine Clarity Urine pH Ur Specific [place] Urine Protein Urine Glucose (UA) Urine Ketones Urine Occult Blood Urine Nitrite Urine Bilirubin Urine Urobilinogen Ur Leukocyte Esterase Urine RBC Urine WBC Ur Squamous Epith Cells Urine Bacteria Ur Microscopic Review Urine Culture Comments Urine HCG, Qual NEGATIVE 12/15/21 16:43 WBC RBC Hgb Hct MCV MCH MCHC RDW Plt Count MPV Neut # (Auto) Lymph # (Auto) [place] # (Auto) Eos # (Auto) Baso # (Auto) Absolute Nucleated RBC Nucleated RBC % Sodium Potassium Chloride Carbon Dioxide Anion Gap BUN Creatinine Estimated GFR (MDRD) Glucose Calcium Total Bilirubin AST ALT Alkaline Phosphatase Total Protein Albumin Globulin Albumin/Globulin Ratio Lipase Urine Color YELLOW Urine Clarity HAZY Urine pH 5.5 Ur Specific [place] 1.010 Urine Protein NEGATIVE Urine Glucose (UA) NEGATIVE Urine Ketones 40 H Urine Occult Blood SMALL H Urine Nitrite NEGATIVE Urine Bilirubin NEGATIVE Urine Urobilinogen 0.2 (NORMAL) Ur Leukocyte Esterase NEGATIVE Urine RBC 0-5 Urine WBC 0-3 Ur Squamous Epith Cells FEW Squamous Urine Bacteria None Seen Ur Microscopic Review INDICATED Urine Culture Comments NOT INDICATED Urine HCG, Qual - Rads (name of study) CT abd Radiology: Final report received (Moderate sigmoid diverticulitis. No definite findings of perforation or abscess can be seen. Colonoscopy is recommended for further evaluation following treatment) PD MEDICAL DECISION MAKING - ED course Complexity details: re-evaluated patient, considered differential, d/w patient ED course: 41-year-old female presents the emergency department for evaluation of 2 days of lower pelvic pain. No fevers or vomiting. She had felt constipated and tried taking fiber without success. Reports a colonoscopy 6 months ago that showed a polyp. Screening labs showed a mild leukocytosis with white count of 12,000. She is mildly hyponatremia but with normal mentation. Urine without signs of infection. His CT scan did show Moderate sigmoid diverticulitis without abscess or perforation. These findings were discussed with the patient. She will be started on Augmentin limited amount of Oxycodone. Advise close follow-up with her primary care provider. Would benefit from follow-up colonoscopy given her young age. Emergent worrisome return precautions discussed I am prescribing a short course of short-acting opioid pain medication for this patient. I have reviewed the patients CEO and no concerning findings were noted. I have discussed that the opioids are for short term therapy only, and will not be refilled from the ED. Departure - Departure Disposition: 01 Home, Self Care Clinical Impression: Sigmoid diverticulitis Condition: Stable Record reviewed to determine appropriate education?: Yes Instructions: ED Diverticulitis Prescriptions: Amox/Clav 875/125 [Augmentin] 1 each PO Q12H #20 tablet oxyCODONE [Roxicodone] 5 mg PO TID PRN #20 tablet PRN Reason: Pain Comments: Marcia sagastume are seen today in the emergency department for pain in the lower part of your pelvic region as well as the left side of your abdomen. Screening labs did not show any acute worrisome findings. However the CT scan does show a moderate sigmoid diverticulitis. In order to treat this I would like you to fill the prescription for the Augmentin and begin taking twice daily. A limited prescription for oxycodone has also been sent to the [facility] pharmacy. In general however I would like you to use ibuprofen 600 mg 2-3 times a day for pain control. The oxycodone can constipate you so use it sparingly. Constipation in the setting of diverticulitis can be dangerous. Over the next 24 to 48 hours I would like you to drink a clear liquid diet. As your pain and symptoms begin to resolve then slowly advance your diet with bananas, rice, applesauce and toast. Please discuss this ED visit with your primary care provider and/or your meat trimmer. You may benefit from repeat colonoscopy. I am prescribing a short course of narcotic pain medication for you. These are potentially dangerous and addictive medications that should be used carefully. These medications may constipate you. Take an [id number] stool softener (docusate) twice daily with plenty of water while taking these medications. If you go 24 hours without a bowel movement, take [id number] miralax, per package instructions. Do not drink or drive while taking these medications. If you received narcotic or sedating medications while in the emergency department, do not drive for 24 hours. Store this medication in a safe, secure place and out of reach of children. It is a violation of federal law to give or sell this medication to another person or to use in a manner other than prescribed. The ED will not refill narcotic prescriptions, including prescriptions lost or stolen. To dispose of unwanted medications: 1. [facility] at [address] in [place] has a medication drop box. They accept prescription medications (in pill form) Friday through Friday 9:00 a.m. to 5:00 p.m. 2. The [facility] [employer] accepts prescription medications (in pill form only) for disposal year round. Call for more information. 3. Contact the [facility] for the next [facility] sponsored prescription drug collection event. , [phone], or [phone]; Note that many narcotic pain relievers also contain Tylenol/acetaminophen. Please ensure that your total dose of acetaminophen from all sources does not exceed 3 g (3000 mg) per day.
[2021-12-15 16:48] LABS: BILIRUBIN,URINE NEGATIVE (NEGATIVE); GLUCOSE, URINE (UA) NEGATIVE (NEGATIVE); KETONES,URINE (UA) 40 mg/dL (NEGATIVE); LEUKOCYTE ESTERASE, URINE NEGATIVE (NEGATIVE); NITRITE,URINE NEGATIVE (NEGATIVE); OCCULT BLOOD,URINE SMALL (NEGATIVE); PH,URINE 5.5 PH (5.0-7.5); PROTEIN,URINE NEGATIVE (NEGATIVE); UROBILINOGEN,URINE 0.2 (NORMAL) E.U./dL (NORMAL)
[2021-12-15 16:50] LABS: BASOPHILS # (AUTO) 0.1 10^3/uL (0.0-0.1); BASOPHILS % (AUTO) 0.6 %; CLARITY,URINE HAZY (CLEAR); EOSINOPHILS # (AUTO) 0.2 10^3/uL (0.0-0.7); EOSINOPHILS % (AUTO) 1.7 %; HCT - HEMATOCRIT 39.7 % (37.0-47.0); HGB - HEMOGLOBIN 13.7 g/dL (12.0-16.0); LYMPHOCYTES # (AUTO) 1.4 10^3/uL (1.5-3.5); LYMPHOCYTES % (AUTO) 11.3 %; MEAN CORPUSCULAR HEMOGLOBIN 30.2 pg (27.0-31.0); MEAN CORPUSCULAR HGB CONC 34.5 g/dL (32.0-36.0); MEAN CORPUSCULAR VOLUME 87.4 fL (81.0-99.0); MEAN PLATELET VOLUME 10.7 fL (7.9-10.8); MONOCYTES # (AUTO) 0.7 10^3/uL (0.0-1.0); MONOCYTES % (AUTO) 5.2 %; NEUTROPHILS # (AUTO) 10.1 10^3/uL (1.5-6.6); PLT - PLATELET COUNT 208 10^3/uL (130-450); RED BLOOD COUNT 4.54 10^6/uL (4.20-5.40); RED CELL DISTRIBUTION WIDTH 12.7 % (12.0-15.0); WHITE BLOOD COUNT 12.5 x10^3/uL (4.8-10.8)
[2021-12-15 17:00] LABS: BACTERIA,URINE None Seen /HPF (None Seen); RBC,URINE 0-5 /HPF (0-5); SQUAMOUS EPITHELIAL CELL,UR FEW Squamous (<= Few); WBC,URINE 0-3 /HPF (0-5)
[2021-12-15 17:08] LABS: ALBUMIN 4.4 g/dL (3.2-5.5); ALBUMIN/GLOBULIN RATIO 1.5 (1.0-2.2); BILIRUBIN,TOTAL 1.3 mg/dL (0.2-1.0); CREATININE 0.7 mg/dL (0.4-1.0); POTASSIUM 3.6 mmol/L (3.5-5.0); TOTAL PROTEIN 7.3 g/dL (6.7-8.2)
[2021-12-15 17:09] LABS: HCG UR QUAL NEGATIVE
--- NOTE | 2021-12-15 17:53 | CT Report ---
PROCEDURE: Abdomen/Pelvis WO INDICATIONS: lower abdominal pelvic pain TECHNIQUE: Noncontrast 5 mm thick sections acquired from the diaphragms to the symphysis. 5 mm coronal and sagi ttal reformats were then performed. For radiation dose reduction, the following was used: automated exposure control, adjustment of mA and/or kV according to patient size. COMPARISON: None. FINDINGS: Image quality: Excellent. ABDOMEN: Lung bases: Lung bases are clear. Heart size is normal. Solid organs: No significant liver abnormality is seen. The spleen is mildly enlarged, measuring 14 c m craniocaudal. Gallbladder wall does not appear thickened. Pancreas is normal in contours. No ad renal nodules. Kidneys are normal in size, without hydronephrosis or nephrolithiasis. Peritoneum and bowel: Focal wall thickening with surrounding inflammatory change can be seen involvin g the sigmoid colon. There are a few diverticula formation seen within this region. No definite free air is seen. No findings of loculated fluid can be seen to suggest abscess. A normal appendix is seen. No dilated loops of small bowel are seen. No additional colonic abnormalit y can be seen. No significant gastric abnormality is seen. Nodes and vessels: No retroperitoneal or mesenteric adenopathy by size criteria. Aorta and inferior vena cava are normal in caliber. Miscellaneous: No ventral hernias. PELVIS: Genitourinary: Bladder wall thickness is normal. The uterus demonstrates an unremarkable appearance for age. No adnexal masses are seen. Miscellaneous: No inguinal hernias or adenopathy. Bones: No suspicious bony lesions. No vertebral body compression fractures. IMPRESSION: Moderate sigmoid diverticulitis. No definite findings of perforation or abscess can be seen. A colonoscopy is recommended for further evaluation, following treatment of the patient's current cli nical episode, for evaluation of a potential underlying mass. Incidental note is made of: Mild splenomegaly Normal appendix Reviewed by: Carloz Mcguire MD on 12/15/2021 4:52 PM [email or web address] Approved by: Carloz Mcguire MD on 12/15/2021 4:52 PM ALEXIS Station ID: [id number]
[2021-12-15] MEDS ORDERED: oxyCODONE 5 MG TABLET PO STA (18:48)
[2021-12-15] MEDS ORDERED: AMOX/CLAV 875 MG/125 MG TABLET PO STA (18:48)
[2021-12-15 18:57] VITALS: BP 113/76
== END 2021-12-15 19:04 | disposition home or self-care (01) ==
LOC: ED 16:14
DX: K57.32 Diverticulitis of large intestine without perforation or abscess without bleeding (principal)
CPT/HCPCS: 36415; 74176; 80053; 81001; 81025; 83690; 85025; 96372; 99284; A9270; J1170; 81003; 87086

== ENCOUNTER 2021-12-17 08:47 | Emergency (ER) | payer OTHER ==
--- OUTSIDE RECORDS SUMMARY | 2021-12-17 09:09 | EXTERNAL MEDICAL SUMMARY RPT | Continuity of Care Document ---
:1980 Author Organization [facility] Address [address] [phone] Phone Allergies No information. Encounters No information. Functional Status No information. Immunizations No information. Medications No information. Problems No information. Procedures date description facility [id number] [facility] Results/Labs No information. Social History No information. Vital Signs No information.
--- NOTE | 2021-12-17 09:10 | ED Physician Documentation ---
PD HPI ABD PAIN - Stated complaint Stated Complaint: ABD PAIN - Chief complaint Chief Complaint: Abd Pain - History obtained from History obtained from: Patient - History of Present Illness Timing - onset: How many days ago (3) - Additional information Additional information: 41-year-old female presents for worsening abdominal pain. Patient was seen in our department 2 days prior and diagnosed with diverticulitis. She was discharged on antibiotics and pain medications. Patient states the pharmacy never received her pain medications, but she has been taking her antibiotics as prescribed. She states that her pain is worse than before and not controlled with [id number] medications. Also reports some maroon-colored stools. Denies fevers, chills, nausea, vomiting, other complaints at this time. Review of Systems Ten Systems: 10 systems reviewed and negative Constitutional: denies: Fever, Chills, Myalgias Nose: denies: Rhinorrhea / runny nose, Foreign Body, Reviewed and negative Throat: denies: Dental pain / toothache, Oral lesions / sores, Sore throat Cardiac: denies: Chest pain / pressure, Palpitations GI: reports: Abdominal Pain, Bloody / black stool. denies: Abdominal Swelling, Nausea, Vomiting, Constipation, Diarrhea, Hematemesis PD PAST MEDICAL HISTORY - Past Medical History Cardiovascular: None Respiratory: None Endocrine/Autoimmune: HyPOthyroidism, Other GI: None : None HEENT: None Psych: None Musculoskeletal: None Derm: None - Past Surgical History /CLEANER AND PRESSER: section - Present Medications Home Medications: Ambulatory Orders Medication Instructions Recorded Confirmed Levothyroxine [Synthroid] 125 mcg PO QDAC 05/23/16 05/23/16 Pnv No.95/Ferrous Fum/Folic AC 1 each PO 05/23/16 05/23/16 [ Tablet] Dicyclomine [Bentyl] 10 mg PO TID #15 capsule 05/24/16 Ondansetron Odt [Zofran] 4 mg TL Q6H PRN #14 tablet 05/24/16 Acetaminophen [Tylenol] 650 mg PO Q6H PRN #90 tablet 04/19/20 Docusate Sodium 100Mg Capsule 100 - 200 mg PO BID PRN #60 capsule 04/19/20 [Colace 100Mg Capsule] Ibuprofen [Motrin] 600 mg PO Q6H PRN #90 tab 04/19/20 oxyCODONE [Roxicodone] 5 mg PO Q4H PRN #24 tablet 04/19/20 Amox/Clav 875/125 [Augmentin] 1 each PO Q12H #20 tablet 12/15/21 oxyCODONE [Roxicodone] 5 mg PO TID PRN #20 tablet 12/15/21 Ciprofloxacin HCl [Cipro] 500 mg PO BID #14 tablet 12/17/21 Oxycodone HCl/Acetaminophen 1 - 2 each PO Q6H PRN #10 tablet 12/17/21 [Percocet 5-325 mg Tablet] metroNIDAZOLE [Flagyl] 500 mg PO TID #21 tab 12/17/21 - Allergies Allergies/Adverse Reactions: Allergies Allergy/AdvReac Type Severity Reaction Status Date / Time No Known Drug Allergies Allergy Verified 12/17/21 08:55 - Social History Does the pt smoke?: No Smoking Status: Never smoker - Immunizations Immunizations are current?: Yes PD ED PE NORMAL - Vitals Vital signs reviewed: Yes - General General: Alert and oriented X 3, No acute distress, Well developed/nourished - HEENT HEENT: Atraumatic, PERRL, EOMI, Ears normal, Moist mucous membranes, Pharynx benign, Dentition benign - Neck Neck: Supple, no meningeal sign, No bony TTP, No adenopathy - Cardiac Cardiac: RRR, No murmur, Strong equal pulses - Respiratory Respiratory: No respiratory distress, Clear bilaterally - Abdomen Abdomen: Soft, Non distended, No organomegaly, Other (Generalized tenderness palpation without rebound or guarding) - Back Back: No CVA TTP, No spinal TTP - Derm Derm: Normal color, Warm and dry, No rash - Extremities Extremities: No deformity, No tenderness to palpate, Normal ROM s pain, No edema - Neuro Neuro: Alert and oriented X 3, 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, No motor deficit, No sensory deficit, Normal speech - Psych Psych: Normal mood, Normal affect Results - Vitals Vitals: Vital Signs - 24 hr 12/17/21 12/17/21 12/17/21 08:53 11:21 11:24 Temperature 36.1 C L Heart Rate 72 65 72 Respiratory 16 17 18 Rate Blood Pressure 148/76 H 117/68 107/68 O2 Saturation 100 100 100 12/17/21 12:13 Temperature Heart Rate 74 Respiratory 16 Rate Blood Pressure 114/72 O2 Saturation 100 Oxygen O2 Source Room air - Labs Labs: Laboratory Tests 12/17/21 12/17/21 09:59 09:59 WBC 8.9 RBC 4.56 Hgb 13.7 Hct 39.9 MCV 87.5 MCH 30.0 MCHC 34.3 RDW 12.4 Plt Count 219 MPV 10.7 Neut # (Auto) 6.2 Lymph # (Auto) 1.8 [place] # (Auto) 0.4 Eos # (Auto) 0.4 Baso # (Auto) 0.1 Absolute Nucleated RBC 0.00 Nucleated RBC % 0.0 Sodium 127 L Potassium 3.7 Chloride 96 L Carbon Dioxide 22 Anion Gap 9.0 BUN 5 L Creatinine 0.6 Estimated GFR (MDRD) 111 Glucose 83 Calcium 8.9 Total Bilirubin 0.9 AST 14 ALT 12 Alkaline Phosphatase 56 Total Protein 7.8 Albumin 4.4 Globulin 3.4 Albumin/Globulin Ratio 1.3 PD MEDICAL DECISION MAKING - ED course ED course: Patient with known diverticulitis presenting for worsening pain. Patient does have diffuse tenderness palpation, however abdomen is soft without peritoneal signs. At this time no indication for repeat imaging. Patient is reporting bloody stools, this is likely secondary to diverticulitis. Repeat labs are unremarkable, patient's white blood cell count is within normal limits, hemoglobin stable. Patient does have hyponatremia, however this was also seen on previous visit. Patient was given a liter of IV fluids. We will change up antibiotic regimen from Augmentin to Cipro and Flagyl. Patient was given a new prescription of pain medications, she was counseled that these may cause her to become constipated and she should take a daily laxative. Departure - Departure Disposition: 01 Home, Self Care Clinical Impression: Diverticulitis Condition: Stable Instructions: Abdominal Pain Prescriptions: Ciprofloxacin HCl [Cipro] 500 mg PO BID #14 tablet metroNIDAZOLE [Flagyl] 500 mg PO TID #21 tab Oxycodone HCl/Acetaminophen [Percocet 5-325 mg Tablet] 1 - 2 each PO Q6H PRN #10 tablet PRN Reason: pain Comments: YOUR LABS TODAY LOOK NORMAL. WE WILL BE SWITCHING YOUR ANTIBIOTIC REGIMEN. STOP TAKING THE OTHER ANTIBIOTICS AND TAKE THESE INSTEAD. Discharge Date/Time: 12/17/21 12:15
[2021-12-17] MEDS ORDERED: oxyCODONE 5 MG TABLET PO STA (09:30)
[2021-12-17 10:04] LABS: BASOPHILS # (AUTO) 0.1 10^3/uL (0.0-0.1); BASOPHILS % (AUTO) 0.6 %; EOSINOPHILS # (AUTO) 0.4 10^3/uL (0.0-0.7); EOSINOPHILS % (AUTO) 4.7 %; HCT - HEMATOCRIT 39.9 % (37.0-47.0); HGB - HEMOGLOBIN 13.7 g/dL (12.0-16.0); LYMPHOCYTES # (AUTO) 1.8 10^3/uL (1.5-3.5); LYMPHOCYTES % (AUTO) 19.9 %; MEAN CORPUSCULAR HGB CONC 34.3 g/dL (32.0-36.0); MEAN CORPUSCULAR VOLUME 87.5 fL (81.0-99.0); MEAN PLATELET VOLUME 10.7 fL (7.9-10.8); MONOCYTES # (AUTO) 0.4 10^3/uL (0.0-1.0); MONOCYTES % (AUTO) 4.8 %; NEUTROPHILS # (AUTO) 6.2 10^3/uL (1.5-6.6); NEUTROPHILS % (AUTO) 69.8 %; PLT - PLATELET COUNT 219 10^3/uL (130-450); RED BLOOD COUNT 4.56 10^6/uL (4.20-5.40); RED CELL DISTRIBUTION WIDTH 12.4 % (12.0-15.0); WHITE BLOOD COUNT 8.9 x10^3/uL (4.8-10.8)
[2021-12-17 10:18] LABS: ALBUMIN 4.4 g/dL (3.2-5.5); ALBUMIN/GLOBULIN RATIO 1.3 (1.0-2.2); BILIRUBIN,TOTAL 0.9 mg/dL (0.2-1.0); CALCIUM 8.9 mg/dL (8.5-10.3); CREATININE 0.6 mg/dL (0.4-1.0); POTASSIUM 3.7 mmol/L (3.5-5.0); TOTAL PROTEIN 7.8 g/dL (6.7-8.2)
[2021-12-17] MEDS ORDERED: SODIUM CHLORIDE 0.9% 1,000 ML IV ONE (10:35)
[2021-12-17 12:15] VITALS: BP 114/72
== END 2021-12-17 12:15 | disposition home or self-care (01) ==
LOC: ED 08:47
DX: K57.92 Diverticulitis of intestine, part unspecified, without perforation or abscess without bleeding (principal)
CPT/HCPCS: 36415; 80053; 85025; 99283; 99284; A9270